=== PATIENT | female | born 1995 | race Caucasian/White ===

== ENCOUNTER 2016-08-24 14:20 | Emergency (ER) | payer BC ==
[~2016-08-24] VITALS: Ht 167.6 cm; Wt 58.0 kg
[2016-08-24 14:33] VITALS: TEMP 36.9; Ht 167.6 cm; Wt 58.0 kg
--- NOTE | 2016-08-24 14:57 | EMERGENCY ROOM VISIT NOTE ---
History Report prepared by Bernarda: Samir Ott Under the Supervision of: Dr. Lazaro Mendenhall D.O. First contact with patient: 14:43 Chief Complaint: VAGINAL DISCHARGE Stated Complaint: SORENESS, SWELLING IN LOWER VULVA History of Present Illness The patient is a 20 year old female who presents to the Emergency Room with complaints of worsening swelling of lower groin area starting a few days ago. In June 2016, the patient had heavy vaginal bleeding. She is unsure of she had any swelling at the time. She was evaluated by an OB-PHARMACEUTICAL PROCESS ENGINEER who prescribed her an antibiotic. She has 2 days left of the antibiotic. A few days ago, the patient noticed some swelling of the groin area which has worsened. Today, she also started having some soreness of the groin area. She applied ice with some relief. The patient denies fevers, chills, or any other complaints. She is not currently sexually active. She denies any history of STDs. The patient does not have any medical problems. Source of History: patient Onset: a few days ago Position: other (groin) Quality: other (soreness and swelling) Timing: worsening Associated Symptoms: No chills, No fevers Review of Systems See HPI for pertinent positives and negatives. A total of 10 systems reviewed and were otherwise negative. Past Medical & Surgical Medical Problems: (1) No Known Active Medical Problems Family History Patient reports no known family medical history. Social History Smoking Status: Never Smoker Alcohol Use: occasionally Drug Use: marijuana Marital Status: single Occupation Status: [employer] student Current/Historical Medications Scheduled Clotrimazole Vaginal (Clotrimazole), 1 APPL VAGRING DAILY Physical Exam Vital Signs Date Time Temp Pulse Resp B/P Pulse Ox O2 Delivery O2 Flow Rate FiO2 08/24/16 15:57 85 17 97/56 98 08/24/16 14:33 36.9 93 16 109/70 99 Room Air Physical Exam GENERAL: Patient is well appearing and in no acute distress. HEENT: No acute trauma, normocephalic atraumatic, mucous membranes moist, no nasal congestion, no scleral icterus. NECK: No stridor, no adenopathy, no meningismus, trachea is midline. LUNGS: No dyspnea. Clear to auscultation and equal bilaterally. No wheeze, no rhonchi. HEART: Regular rate and rhythm. No murmurs, rubs, gallops appreciated. ABDOMEN: Soft, nontender, bowel sounds positive, no masses appreciated, no peritonitis. BACK: No midline tenderness, no CVA tenderness PELVIC EXAM: White curd-like discharge, no cervical motion tenderness. She has a 1 cm linear area of bilateral interior labia minor that was hyperemic not consistent with herpes. EXTREMITIES: Normal motion all extremities, no cyanosis, no edema. NEUROLOGIC: Alert and oriented, no acute motor or sensory deficits, no focal weakness, cranial nerves grossly intact. SKIN: No rash, no jaundice, no diaphoresis. Medical Decision & Procedures Laboratory Results Test 08/24/16 15:15 08/24/16 15:20 08/24/16 15:53 Urine Test NEG (NEG) Hepatitis C Antibody NEG (NEG) Laboratory results as reviewed by me. ED Course 1443: The patient was evaluated in room B07. A complete history and physical exam was performed. 1511: I performed pelvic exam. Refer to physical exam for further details. 1530: Reevaluated the patient. Discussed results and discharge instructions: She verbalized understanding and agreement. The patient is ready for discharge. Medical Decision Differential diagnosis includes but is not limited to STIs, herpes, abscess, Bartholin cyst. Patient is a 20-year-old female who presents with full for pain approximately one week in duration. She has one lifetime sexual partner, no previous STI history. She reports that she has an area of irritation on the interval which is likely secondary to a prolonged menstrual period which she saw her methods analyst for back in [facility] where she is from. Today on physical exam she has a definite candidal infection, she has bilateral linear areas that are likely secondary to bulbar irritation, she is concerned that she may have an allergy to latex, her sexual partner uses latex condoms and she had something like this previously. This could very well represent a contact dermatitis, I have sent a herpes virus culture as well as IgG and IgM titers. Also sent a gonococcal and chlamydial DNA probe. I advised her to follow-up with primary care provider, she is at [facility], however given her referrals to Dr. Liriano for possible allergy evaluation as well as [facility]. She is given clotrimazole vaginal suppositories for the oval vaginal candidiasis she is discharged home in improved stable condition Impression Primary Impression: Vulvovaginal candidiasis Additional Impressions: Vulvovaginal itching Vulvovaginal pain Scribe Attestation The scribes documentation has been prepared under my direction and personally reviewed by me in its entirety. I confirm that the note above accurately reflects all work, treatment, procedures, and medical decision making performed by me. Departure Information Dispostion Home / Self-Care Prescriptions Clotrimazole Vaginal (CLOTRIMAZOLE) 1 % Cre 1 APPL VAGRING DAILY for 7 Days Prov: Lazaro Mendenhall, DToniO. 08/24/16 Referrals Magui Mauricio M.D. He can follow-up with Dr. Mauricio for any gynecological needs Jovani Koo M.D. He can follow-up with Dr. Koo for further allergy evaluation [facility] Follow-up with [facility] for your primary care needs Forms HOME CARE DOCUMENTATION FORM, IMPORTANT VISIT INFORMATION, WORK / SCHOOL INSTRUCTIONS Patient Instructions ED Vaginal Infec Fungal Lamar, My [facility] Problem Qualifiers
[2016-08-24] MEDS ORDERED: CLOT1CRE3 VAGRING (15:38)
[2016-08-24 15:57] VITALS: BP 97/56; PULSE 85; O2SAT 98
[2016-08-28 03:42] LABS: CHLAMYDIA TRACH RNA*** NOT DETECTED (NOT DETECTED); GC (NEIS GONORRHOEAE)RNA** NOT DETECTED (NOT DETECTED)
[2016-08-29 22:33] LABS: HERPES SIMPLEX AB IGG-1 >5.00; HERPES SIMPLEX AB IGG-2 0.02; HSV1 AB IGM Negative (Negative); HSV2 AB IGM Negative (Negative)
== END 2016-08-24 15:59 | disposition home or self-care (01) ==
LOC: C.EDB 14:22 → EDBD 14:22 → C.EDB 15:59
DX: B37.3 Candidiasis of vulva and vagina (principal)